=== PATIENT | male | born 1970 | race Caucasian/White ===

== ENCOUNTER 2023-09-25 12:06 | Inpatient (IN) | payer MEDICAID ==
[~2023-09-25] VITALS: Ht 175.3 cm; Wt 124.7 kg
[2023-09-25 12:55] LABS: BASOPHILS % 0.8 % (0.0-2.0); EOSINOPHILS % 0.7 % (0.0-5.0); HEMATOCRIT. 52.3 % (42.0-52.0); HEMOGLOBIN. 17.9 g/dL (14.0-18.0); LYMPHOCYTES % 14.7 % (20.0-50.0); MEAN CORPUSCULAR HEMOGLOBIN 32.7 pg (28.0-32.0); MEAN CORPUSCULAR HGB CONC 34.3 g/dL (31.0-37.0); MEAN CORPUSCULAR VOLUME 95.4 fL (80.0-94.0); MEAN PLATELET VOLUME 8.9 fl (7.4-10.4); MONOCYTES % 9.2 % (2.0-8.0); NEUTROPHILS % 74.6 % (40.0-76.0); PLATELET 253 x1000/uL (130-400); RED BLOOD CELL COUNT 5.48 mill/uL (4.7-6.1); RED CELL DISTRIBUTION WIDTH 13.2 % (11.6-14.6); WHITE BLOOD COUNT 8.5 x1000/uL (4.5-11.0)
[2023-09-25 13:14] LABS: ALANINE AMINOTRANSFERASE 46 IU/L (10-49); ALBUMIN 4.6 g/dL (3.2-4.8); ASPARTATE AMINOTRANSFERASE 47 IU/L (<34); BILIRUBIN TOTAL 0.6 mg/dL (0.1-1.0); CARBON DIOXIDE 30 mEq/L (21-32); CHLORIDE 99 mEq/L (98-107); CREATININE 0.9 mg/dL (0.6-1.3); GLUCOSE 124 mg/dL (70-105); POTASSIUM 5.2 mEq/L (3.5-5.1); PROTEIN TOTAL 8.4 g/dL (6.0-8.3); SODIUM 135 mEq/L (136-145); TROPONIN I HIGH SENSITIVITY 43 ng/L (3.0-53); UREA NITROGEN BLOOD 12 mg/dL (9-23)
[2023-09-25] MEDS: LABETALOL 5MG/ML SYR 20 MG/4 ML SYRINGE IV ONE (13:35)
[2023-09-25] MEDS ORDERED: MAGNESIUM/ALUMINUM HYDROXIDE/SIMETHICONE 30ML UDC PO PRN (18:45)
[2023-09-25] MEDS ORDERED: ACETAMINOPHEN 325MG TABLET PO PRN (18:45)
[2023-09-25] MEDS ORDERED: DIPHENHYDRAMINE 50MG/ML VIAL IV PRN (18:45)
[2023-09-25] MEDS ORDERED: ONDANSETRON HCL 4MG/2ML INJ IV PRN (18:45)
[2023-09-25] MEDS: CLONIDINE 0.1MG TABLET PO PRN (19:14)
[2023-09-25 20:30] VITALS: BP 154/89; PULSE 70; RESP 20; TEMP 97
[2023-09-25] MEDS: SODIUM CHLORIDE 0.9% INJ 3ML FLUSH IVF SCH (23:01)
[2023-09-26] VITALS (7 sets, daily range): BP systolic 130–180; BP diastolic 78–116; PULSE 18–80; RESP 18–66; TEMP 97.4–98.2
[2023-09-26] MEDS: CLOPIDOGREL 75MG TABLET PO SCH (10:51)
[2023-09-26] MEDS: ASPIRIN 81MG EC TABLET PO SCH (10:51)
[2023-09-26] MEDS: LOSARTAN 50 MG TABLET PO SCH (17:01)
[2023-09-26] MEDS ORDERED: HYDRALAZINE 20MG/ML VIAL IV PRN (20:30)
[2023-09-26] MEDS: ATORVASTATIN CALCIUM 40MG TABLET PO SCH (21:48)
[2023-09-26] MEDS: AMLODIPINE 5MG TABLET PO SCH (21:50)
[2023-09-27] VITALS: BP 142/79; PULSE 80; RESP 17; TEMP 97.9
[2023-09-27 04:00] VITALS: BP 115/84; PULSE 70; RESP 18; TEMP 97.7
[2023-09-27 08:03] VITALS: BP 144/102; PULSE 68; RESP 20; TEMP 98.2
[2023-09-27] MEDS: LOSARTAN 50 MG TABLET PO SCH (09:37)
[2023-09-27] MEDS: CHLORTHALIDONE 25MG TABLET PO SCH (09:37)
[2023-09-27] MEDS: ACETAMINOPHEN 325MG TABLET PO PRN (10:55)
[2023-09-27 12:00] VITALS: BP 157/101; PULSE 68; RESP 20; TEMP 98.8
[2023-09-27 15:49] VITALS: BP 160/92; PULSE 66; TEMP 98.2; O2SAT 94
[2023-09-27 16:00] VITALS: BP 160/92; PULSE 66; RESP 18; TEMP 98.2
== END 2023-09-27 16:10 | disposition home or self-care (01) | DRG 49 ==
LOC: ER 12:06 → 5WST 15:38 → EDBEDREQ 15:39 → EDBEDREQTM 15:39 → 8WST 21:44
PROVIDERS: ADMIT Internal Medicine; ATTEND Internal Medicine
DX: G61.0 Guillain-Barre syndrome (principal); E11.9 Type 2 diabetes mellitus without complications; R47.81 Slurred speech; E66.9 Obesity, unspecified; Z86.73 Personal history of transient ischemic attack (TIA), and cerebral infarction without residual deficits; E78.00 Pure hypercholesterolemia, unspecified; G24.9 Dystonia, unspecified; I10 Essential (primary) hypertension; Z68.41 Body mass index [BMI] 40.0-44.9, adult
CPT/HCPCS: 36415; 70551; 71045; 80053; 80061; 83036; 83519; 83880; 84484; 85025; 86255; 92523; 92610; 93005; 93306; 93880; 99285; J3490